=== PATIENT | female | born 1950 | race Caucasian/White ===

== ENCOUNTER 2016-04-13 10:45 | Outpatient (CLI) | payer MEDICARE, OTHER | END 2016-04-13 10:46 | disposition home or self-care (01) | DX: L03.211 Cellulitis of face (principal) ==

== ENCOUNTER 2016-07-20 13:11 | Outpatient (CLI) | payer MEDICARE, OTHER | END 2016-07-20 13:12 | disposition home or self-care (01) | DX: Z12.31 Encounter for screening mammogram for malignant neoplasm of breast (principal); Z80.3 Family history of malignant neoplasm of breast ==

== ENCOUNTER 2017-07-26 13:15 | Outpatient (CLI) | payer MEDICARE, OTHER ==
--- NOTE | 2017-07-27 20:03 | Mammography Report ---
DIGITAL SCREENING MAMMOGRAM: 07/26/2017 TECHNIQUE: Routine CC and MLO projections were obtained of the breasts. CLINICAL INDICATION: A 66-year-old with family history of breast cancer, for screening. COMPARISON: 07/2016, 07/2015, 06/2014, 06/2013, 06/2012, 05/2011, 03/2010 FINDINGS: Scattered fibroglandular tissue is present within the breasts. There are no dominant masses, suspicious microcalcifications, or secondary signs of malignancy. In comparison to the previous studies, there are no significant changes. ASSESSMENT: NO MAMMOGRAPHIC EVIDENCE OF MALIGNANCY. NO SIGNIFICANT INTERVAL CHANGES. RECOMMENDATION: Screening mammography is recommended annually. BIRADS category 1 - negative. STANDARD QUALIFYING STATEMENTS: 1. This examination was reviewed with the aid of Computed-Aided Detection (CAD). 2. A negative or benign imaging report should not delay biopsy if clinically suspicious findings are present. Consider surgical consultation if warranted. More than 5% of cancers are not identified by imaging. 3. Dense breasts may obscure an underlying neoplasm. TD: 07/27/2017 20:01
== END 2017-07-26 13:16 | disposition home or self-care (01) ==
LOC: DI 13:15
PROVIDERS: ATTEND Family Medicine
DX: Z12.31 Encounter for screening mammogram for malignant neoplasm of breast (principal); Z80.3 Family history of malignant neoplasm of breast
CPT/HCPCS: 77067

== ENCOUNTER 2017-08-09 09:59 | Outpatient (CLI) | payer MEDICARE, OTHER ==
[2017-08-09 12:54] LABS: BASOPHILS % (AUTO) 0.6 %; EOSINOPHILS # (AUTO) 0.1 10^3/uL (0.0-0.7); EOSINOPHILS % (AUTO) 0.9 %; HGB - HEMOGLOBIN 14.7 g/dL (12.0-16.0); LYMPHOCYTES # (AUTO) 1.5 10^3/uL (1.5-3.5); LYMPHOCYTES % (AUTO) 26.3 %; MEAN CORPUSCULAR HEMOGLOBIN 29.9 pg (27.0-31.0); MEAN CORPUSCULAR HGB CONC 33.6 g/dL (32.0-36.0); MEAN CORPUSCULAR VOLUME 88.8 fL (81.0-99.0); MEAN PLATELET VOLUME 9.2 fL (7.9-10.8); MONOCYTES # (AUTO) 0.4 10^3/uL (0.0-1.0); MONOCYTES % (AUTO) 6.2 %; NEUTROPHILS # (AUTO) 3.8 10^3/uL (1.5-6.6); PLT - PLATELET COUNT 177 10^3/uL (130-450); RED BLOOD COUNT 4.91 10^6/uL (4.20-5.40); RED CELL DISTRIBUTION WIDTH 13.2 % (12.0-15.0); WHITE BLOOD COUNT 5.7 x10^3/uL (4.8-10.8)
[2017-08-09 12:59] LABS: ALBUMIN 4.2 g/dL (3.2-5.5); ALBUMIN/GLOBULIN RATIO 1.1 (1.0-2.2); ALKALINE PHOSPHATASE 83 IU/L (42-121); ALT ALANINE AMINOTRANSFERASE 14 IU/L (10-60); AST ASPARTATE AMINOTRANSFERASE 23 IU/L (10-42); BILIRUBIN,TOTAL 1.4 mg/dL (0.2-1.0); BUN - BLOOD UREA NITROGEN 19 mg/dL (6-20); CALCIUM 9.2 mg/dL (8.5-10.3); CARBON DIOXIDE - CO2 27 mmol/L (21-32); CHLORIDE 101 mmol/L (101-111); CHOL/HDL RATIO 3.9 (<4.4); CHOLESTEROL 267 mg/dL; CREATININE 0.7 mg/dL (0.4-1.0); GFR - MDRD 83 (>89); GLUCOSE 87 mg/dL (70-100); HDL CHOLESTEROL 69 mg/dL; LDL CHOLESTEROL,CALCULATED 178 mg/dL; LDL/HDL RATIO 2.6 (<4.4); SODIUM 137 mmol/L (135-145); TOTAL PROTEIN 7.9 g/dL (6.7-8.2); VLDL CHOLESTEROL 20 mg/dL
== END 2017-08-09 10:00 | disposition home or self-care (01) ==
LOC: LAB.WCP 09:59
PROVIDERS: ATTEND Family Medicine
DX: E78.5 Hyperlipidemia, unspecified (principal); R53.83 Other fatigue; E03.9 Hypothyroidism, unspecified
CPT/HCPCS: 36415; 80053; 80061; 83721; 84443; 85025

== ENCOUNTER 2017-08-13 12:53 | Outpatient (CLI) | payer MEDICARE, OTHER ==
--- NOTE | 2017-08-16 17:24 | DEXA Report ---
DEXA SCAN: 08/13/2017 INDICATION: Bone mineral density screening. TECHNIQUE: Dual energy x-ray absorptiometry (DXA) was performed on a Edictive system. Regions measured are the AP spine, femoral neck, and, if needed, forearm. COMPARISON: No comparable comparison. In accordance with the International Society for Clinical Densitometry (ISCD) guidelines, data from previous exams may be reanalyzed using current recommendations and techniques. This is done to allow a more accurate basis for comparison with the current study. FINDINGS The data for the lumbar spine is as follows: REGION BMD (g/cm/cm) T-SCORE Z-SCORE L1 0.834 -2.5 -1.2 L2 0.993 -1.7 -0.5 L3 1.120 -0.7 0.6 L4 1.360 1.3 2.6 TOTAL 1.087 -0.8 0.5 NOTE: All evaluable vertebrae are used for classification. The data for the hip is as follows: REGION BMD (g/cm/cm) T-SCORE Z-SCORE Neck 0.648 -2.8 -1.5 TOTAL 0.765 -1.9 -0.9 NOTE: The femoral neck or total proximal femur, whichever is lowest, is used for classification. Lumbar spine bone mineral density L1-L4 1.087 grams/cm2. T-score minus 0.8. Z- score 0.5. WHO classification normal. Femoral neck bone mineral density 0.648 grams/cm2. T score -2.8. Z-score - 1.5. WHO classification osteoporosis. IMPRESSION WHO CLASSIFICATION BASED ON THE INTERNATIONAL REFERENCE STANDARD IS OSTEOPOROSIS. FRACTURE RISK IS HIGH. RECOMMENDATION: Patients with diagnosis of osteoporosis or osteopenia should have regular bone mineral density assessment. For those eligible for Medicare, routine testing is allowed once every 2 years. Testing frequency can be increased for patients who have rapidly progressing disease or for those who are receiving medical therapy to restore bone mass. COMMENT World Health Organization (WHO) definitions for osteoporosis and osteopenia: NORMAL BMD: T-score at 1.0 or higher, fracture risk is low. OSTEOPENIA BMD: T-score between 1.0 and -2.5, fracture risk is increased. OSTEOPOROSIS BMD: T-score at 2.5 or lower, fracture risk high. National Osteoporosis Foundation recommends: 1. Obtain adequate dietary calcium (at least 1200 mg per day) and vitamin D (400 -800 international units per day). 2. Participate, as appropriate, in regular weightbearing and muscle- strengthening exercise. 3. Avoid tobacco use and reduce alcohol and caffeine intake. 4. For more detailed information see the website at www.NOF.org. TD: 08/16/2017 08:31 GINA
== END 2017-08-13 12:54 | disposition home or self-care (01) ==
LOC: DI 12:53
PROVIDERS: ATTEND Family Medicine
DX: Z78.0 Asymptomatic menopausal state (principal); M81.0 Age-related osteoporosis without current pathological fracture
CPT/HCPCS: 77080

== ENCOUNTER 2017-10-12 09:48 | Day surgery (SDC) | payer MEDICARE, OTHER ==
[2017-10-12] MEDS ORDERED: LACTATED RINGERS 1,000 ML IV ONE ×2 (10:15→13:38)
[2017-10-12] MEDS ORDERED: fentaNYL 250 MCG/5 ML VIAL IVP ONE (10:57)
[2017-10-12] MEDS ORDERED: MIDAZOLAM 2 MG/2 ML VIAL IVP ONE (10:57)
[2017-10-12] MEDS ORDERED: ONDANSETRON 4 MG/2 ML VIAL ONE (12:02)
[2017-10-12] MEDS ORDERED: METOCLOPRAMIDE 10 MG/2 ML VIAL ONE (12:03)
[2017-10-12] MEDS ORDERED: SCOPOLAMINE PATCH TOP ONE (13:42)
[2017-10-12 15:12] VITALS: BP 121/80
== END 2017-10-12 09:49 | disposition home or self-care (01) ==
LOC: SDS 09:48
PROVIDERS: ATTEND Surgery
PROC: 0DJD8ZZ Inspection of Lower Intestinal Tract, Via Natural or Artificial Opening Endoscopic (ICD-10-PCS; principal; 2017-10-12 11:00)
DX: Z12.11 Encounter for screening for malignant neoplasm of colon (principal); K57.30 Diverticulosis of large intestine without perforation or abscess without bleeding; K64.8 Other hemorrhoids; Z87.891 Personal history of nicotine dependence
CPT/HCPCS: G0121; J3010; J3490; J7120

== ENCOUNTER 2018-08-10 10:23 | Outpatient (CLI) | payer MEDICARE, OTHER ==
--- NOTE | 2018-08-11 09:12 | Mammography Report ---
Reason: SCREENING MAMMO Procedure Date: 08/10/2018 Accession Number: [id number] / [id number] Procedure: [facility] - Screening Mammo w/Erick CPT Code: FULL RESULT: EXAM: Screening Mammo w/Erick DATE: 08/10/2018 10:54 AM CLINICAL HISTORY: Screening encounter. History of early menses. Family history of breast cancer in the mother at the age of 69. TECHNIQUE: (B) - Bilateral CC and MLO views were obtained. COMPARISON: 07/26/2017 through 06/11/2014. PARENCHYMAL PATTERN: (A) - The breast(s) demonstrate(s) scattered fibroglandular densities. FINDINGS: There are no suspicious masses, calcifications, or areas of distortion. IMPRESSION: Negative examination. BI-RADS category 1. RECOMMENDATION: (ANNUAL) - Recommend routine annual screening mammography. BI-RADS CATEGORY: (1) - Negative. STANDARD QUALIFYING STATEMENTS: 1. This examination was not reviewed with the aid of Computer-Aided Detection (CAD). 2. A negative or benign imaging report should not preclude biopsy if clinically suspicious findings are present. 3. Dense breasts may obscure an underlying neoplasm. 4. This examination was reviewed with the aid of 3D breast imaging (tomosynthesis).
== END 2018-08-10 10:24 | disposition home or self-care (01) ==
LOC: DI 10:23
DX: Z12.31 Encounter for screening mammogram for malignant neoplasm of breast (principal); Z80.3 Family history of malignant neoplasm of breast
CPT/HCPCS: 77063; 77067

== ENCOUNTER 2019-01-15 16:55 | Emergency (ER) | payer MEDICARE, OTHER ==
[2019-01-15 17:10] VITALS: BP 151/80
--- NOTE | 2019-01-15 17:11 | ED Physician Documentation ---
PD HPI NECK PAIN - Stated complaint Stated Complaint: NECK/SHOULDER PX - Chief complaint Chief Complaint: Trauma Hd/Nk - History obtained from History obtained from: Patient - History of Present Illness Timing - onset: Other (Over the last couple of days she has had pain over the left neck radiating down into the trapezius and towards the clavicle. She got worried about it today and checked her blood pressure and it was about 156/90 prompting emergency department visit. 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, Tubal ligation HEENT: Cataracts - Present Medications Home Medications: Ambulatory Orders Medication Instructions Recorded Confirmed Levothyroxine [Synthroid] 25 mcg PO QDAC 10/11/17 10/12/17 Cyclobenzaprine [Flexeril] 10 mg PO TID PRN #20 tablet 01/15/19 - Allergies Allergies/Adverse Reactions: Allergies Allergy/AdvReac Type Severity Reaction Status Date / Time NSAIDS (Non-Steroidal Allergy Severe Bleeding Verified 01/15/19 17:02 Anti-Inflamma iodine AdvReac Mild Feeling Verified 01/15/19 17:02 flushed PD ED PE NORMAL - Vitals Vital signs reviewed: Yes - General General: Alert and oriented X 3, No acute distress - HEENT HEENT: PERRL, EOMI - Neck Neck: Other (She is tender over the left sternocleidomastoid and trapezius. She has pain with rotation of the neck but not flexion or extension.) - Cardiac Cardiac: RRR, No murmur - Respiratory Respiratory: Clear bilaterally - Abdomen Abdomen: Non tender - Extremities Extremities: No edema, No calf tenderness / cord - Neuro Neuro: Alert and oriented X 3, Normal speech Results - Vitals Vitals: Vital Signs - 24 hr 01/15/19 16:59 Temperature 36.9 C Heart Rate 82 Respiratory 16 Rate Blood Pressure 151/80 H O2 Saturation 100 Oxygen O2 Source Room air - EKG (time done) 1712 Rate: Rate (enter#) (81) Rhythm: NSR, LAE [place]: Normal Intervals: Normal NE QRS: Normal Ischemia: Normal ST segments Computer interpretation: Agree with computer PD MEDICAL DECISION MAKING - ED course ED course: She is worried about her blood pressure, its really actually not that elevated from emergency department standpoint. Clinically she has sternocleidomastoid spasm. An EKG was checked out of an abundance of caution. Departure - Departure Disposition: 01 Home, Self Care Clinical Impression: Elevated blood pressure reading in office without diagnosis of hypertension Strain of sternocleidomastoid muscle Qualifiers: Encounter type: initial encounter Qualified Code(s): S16.1XXA - Strain of muscle, fascia and tendon at neck level, initial encounter Condition: Good Record reviewed to determine appropriate education?: Yes Instructions: ED Sprain Strain Neck Prescriptions: Cyclobenzaprine [Flexeril] 10 mg PO TID PRN #20 tablet PRN Reason: Spasms Comments: Your blood pressure today is elevated, but not enough that it would be immediately dangerous. Check it again when you are feeling well. Return for new or worsening symptoms. Follow-up with your doctor this week.
== END 2019-01-15 17:27 | disposition home or self-care (01) ==
LOC: ED 16:55
DX: R03.0 Elevated blood-pressure reading, without diagnosis of hypertension (principal); S16.1XXA Strain of muscle, fascia and tendon at neck level, initial encounter; X50.9XXA Other and unspecified overexertion or strenuous movements or postures, initial encounter; Y93.H9 Activity, other involving exterior property and land maintenance, building and construction; Y92.007 Garden or yard of unspecified non-institutional (private) residence as the place of occurrence of the external cause
CPT/HCPCS: 93005; 99282; 99283

== ENCOUNTER 2019-04-11 07:56 | Outpatient (CLI) | payer MEDICARE, OTHER ==
[2019-04-11 08:32] LABS: BASOPHILS % (AUTO) 0.6 %; EOSINOPHILS # (AUTO) 0.1 10^3/uL (0.0-0.7); EOSINOPHILS % (AUTO) 1.7 %; HGB - HEMOGLOBIN 14.5 g/dL (12.0-16.0); LYMPHOCYTES # (AUTO) 1.7 10^3/uL (1.5-3.5); LYMPHOCYTES % (AUTO) 32.7 %; MEAN CORPUSCULAR HEMOGLOBIN 29.8 pg (27.0-31.0); MEAN CORPUSCULAR HGB CONC 32.4 g/dL (32.0-36.0); MEAN CORPUSCULAR VOLUME 91.8 fL (81.0-99.0); MEAN PLATELET VOLUME 10.4 fL (7.9-10.8); MONOCYTES # (AUTO) 0.4 10^3/uL (0.0-1.0); MONOCYTES % (AUTO) 7.3 %; NEUTROPHILS # (AUTO) 3.1 10^3/uL (1.5-6.6); NEUTROPHILS % (AUTO) 57.3 %; PLT - PLATELET COUNT 172 10^3/uL (130-450); RED BLOOD COUNT 4.87 10^6/uL (4.20-5.40); WHITE BLOOD COUNT 5.3 x10^3/uL (4.8-10.8)
[2019-04-11 08:39] LABS: ALBUMIN 4.1 g/dL (3.2-5.5); ALBUMIN/GLOBULIN RATIO 1.2 (1.0-2.2); ALKALINE PHOSPHATASE 75 IU/L (42-121); ALT ALANINE AMINOTRANSFERASE 11 IU/L (10-60); AST ASPARTATE AMINOTRANSFERASE 19 IU/L (10-42); BUN - BLOOD UREA NITROGEN 12 mg/dL (6-20); CALCIUM 9.1 mg/dL (8.5-10.3); CARBON DIOXIDE - CO2 29 mmol/L (21-32); CHLORIDE 104 mmol/L (101-111); CHOL/HDL RATIO 3.2 (<4.4); CHOLESTEROL 188 mg/dL; CREATININE 0.7 mg/dL (0.4-1.0); GFR - MDRD 83 (>89); GLUCOSE 95 mg/dL (70-100); HDL CHOLESTEROL 58 mg/dL; LDL CHOLESTEROL,CALCULATED 111 mg/dL; LDL/HDL RATIO 1.9 (<4.4); SODIUM 140 mmol/L (135-145); TOTAL PROTEIN 7.5 g/dL (6.7-8.2); VLDL CHOLESTEROL 19 mg/dL
== END 2019-04-11 07:57 | disposition home or self-care (01) ==
LOC: LAB 07:56
PROVIDERS: ATTEND Nurse Practitioner Family
DX: E78.5 Hyperlipidemia, unspecified (principal); E03.9 Hypothyroidism, unspecified
CPT/HCPCS: 36415; 80053; 80061; 83721; 84443; 85025

== ENCOUNTER 2019-09-06 11:09 | Outpatient (CLI) | payer MEDICARE, OTHER ==
--- NOTE | 2019-09-08 11:25 | Mammography Report ---
BILATERAL DIGITAL SCREENING MAMMOGRAM 3D/2D: 09/06/2019 CLINICAL: Routine screening. Family history of breast cancer. Comparison is made to exams dated: 08/10/2018 mammogram, 07/26/2017 mammogram, 07/20/2016 mammogram, and 07/08/2015 mammogram - [facility]. There are scattered fibroglandular elements in b oth breasts. No significant masses, calcifications, or other findings are seen in either breast. There has been no significant interval change. IMPRESSION: NEGATIVE There is no mammographic evidence of malignancy. A 1 year screening mammogram is recommended. This exam was interpreted at Station ID: [id number]. NOTE: For mammograms, a report in lay terms will be sent to the patient. Approximately 15% of breast malignancies will not be visualized mammographically. In the management of a palpable breast mass, a negative mammogram must not discourage biopsy of a clinically suspicious lesion. Electronically Signed By: Adrianne [email or web address]:09/06/2019 14:45:28 ACR BI-RADS Category 1: Negative [id number] PARENCHYMAL PATTERN: (A) - The breast(s) demonstrate(s) scattered fibroglandular densities. BI-RADS CATEGORY: (1) - 1 RECOMMENDATION: (ANNUAL) - Recommend routine annual screening mammography. [id number] 1 year screening LATERALITY: (B)
== END 2019-09-06 11:10 | disposition home or self-care (01) ==
LOC: DI 11:09
DX: Z12.31 Encounter for screening mammogram for malignant neoplasm of breast (principal); Z80.3 Family history of malignant neoplasm of breast
CPT/HCPCS: 77063; 77067

== ENCOUNTER 2019-10-01 09:56 | Emergency (ER) | payer MEDICARE, OTHER ==
[2019-10-01] MEDS ORDERED: DEXAMETHASONE 10 MG/ML VIAL PO STA (10:45)
[2019-10-01] MEDS ORDERED: CHERRY SYRUP 10 ML UDC PO ONE (10:45)
[2019-10-01] MEDS ORDERED: KETOROLAC 60 MG/2 ML VIAL IM STA (10:45)
--- NOTE | 2019-10-01 10:49 | ED Physician Documentation ---
PD HPI BACK PAIN - Stated complaint Stated Complaint: BACK PAIN - Chief complaint Chief Complaint: Back Pain - History obtained from History obtained from: Patient - History of Present Illness Timing - onset: How many days ago (3) Timing - duration: Days (3) Timing - details: Abrupt onset, Still present Location: Lower, Right Quality: Pain, Spasm, Sharp, Similar to prior episodes Associated symptoms: Numbness. No: Fever, Weakness, Incontinent of urine, Unable to urinate, Hematuria, Incontinent of stool Improves with: Rest, Position, Meds Worsened by: Movement Similar symptoms before: Diagnosis (sciatica) Recently seen: Clinic Review of Systems Constitutional: denies: Fever, Chills, Myalgias, Fatigue Eyes: denies: Decreased vision Ears: denies: Ear pain Nose: denies: Rhinorrhea / runny nose, Congestion Throat: denies: Sore throat Cardiac: denies: Chest pain / pressure, Palpitations Respiratory: reports: Cough (allergic cough). denies: Dyspnea GI: denies: Abdominal Pain, Nausea, Vomiting : denies: Dysuria, Frequency Skin: denies: Rash, Lesions Musculoskeletal: reports: Back pain, Extremity pain. 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 HEENT: Cataracts - Present Medications Home Medications: Ambulatory Orders Medication Instructions Recorded Confirmed Levothyroxine [Synthroid] 25 mcg PO QDAC 10/11/17 10/12/17 Cyclobenzaprine [Flexeril] 10 mg PO TID PRN #20 tablet 01/15/19 Cyclobenzaprine [Flexeril] 10 mg PO TID PRN #20 tablet 10/01/19 Hydrocodone/Acetaminophen 1 - 2 each PO Q6H PRN #14 tablet 10/01/19 [Hydrocodon-Acetaminophen 5-325] - Allergies Allergies/Adverse Reactions: Allergies Allergy/AdvReac Type Severity Reaction Status Date / Time NSAIDS (Non-Steroidal Allergy Severe Bleeding Verified 01/15/19 17:02 Anti-Inflamma iodine AdvReac Mild Feeling Verified 01/15/19 17:02 flushed - Social History Does the pt smoke?: No Smoking Status: Never smoker PD ED PE NORMAL - Vitals Vital signs reviewed: Yes (tachy and hypertensive ) - General General: Alert and oriented X 3, Well developed/nourished, Other (appears to be in pain with manager intensive care tone and flat affect) - HEENT HEENT: Atraumatic, PERRL, EOMI - Neck Neck: Supple, no meningeal sign - Respiratory Respiratory: No respiratory distress - Back Back: No CVA TTP, No spinal TTP, Other (tenderness extends from the lower right paraspinous muscles into the sciatic notch and over the trochanter) - Derm Derm: Normal color, Warm and dry, No rash - Extremities Extremities: No deformity, No edema, No calf tenderness / cord - Neuro Neuro: Alert and oriented X 3, bleach supervisor 2-12 intact, No motor deficit, No sensory deficit, Normal speech Eye Opening: Spontaneous Motor: Obeys Commands Verbal: Oriented GCS Score: 15 - Psych Psych: Normal mood, Normal affect Results - Vitals Vitals: Vital Signs - 24 hr 10/01/19 10/01/19 10:01 11:07 Temperature 36.8 C 36.4 C L Heart Rate 102 H 96 Respiratory 16 16 Rate Blood Pressure 129/93 H 138/74 H O2 Saturation 99 99 Oxygen O2 Source Room air PD MEDICAL DECISION MAKING - ED course Complexity details: reviewed old records, re-evaluated patient, considered differential, d/w patient ED course: 68-year-old female history of sciatica has developed acute sciatica on the right side. This is not her usual side. She has significant symptoms all way down the leg. She is administered dexamethasone 10 mg orally and Toradol 60 mg IM[address] We will place her on some Flexeril and hydrocodone. Departure - Departure Disposition: 01 Home, Self Care Clinical Impression: Sciatica Qualifiers: Laterality: right Qualified Code(s): M54.31 - Sciatica, right side Condition: Stable Instructions: ED Sciatica Follow-Up: Flores Dumont DO [Primary Care Provider] - Prescriptions: Cyclobenzaprine [Flexeril] 10 mg PO TID PRN #20 tablet PRN Reason: Spasms Hydrocodone/Acetaminophen [Hydrocodon-Acetaminophen 5-325] 1 - 2 each PO Q6H PRN #14 tablet PRN Reason: pain Discharge Date/Time: 10/01/19 11:08
[2019-10-01 11:08] VITALS: BP 138/74
== END 2019-10-01 11:08 | disposition home or self-care (01) ==
LOC: ED 09:56
DX: M54.41 Lumbago with sciatica, right side (principal)
CPT/HCPCS: 96372; 99283; 99284; A9270

== ENCOUNTER 2019-10-07 08:33 | Emergency (ER) | payer MEDICARE, OTHER ==
--- NOTE | 2019-10-07 08:55 | ED Physician Documentation ---
PD HPI BACK PAIN - Stated complaint Stated Complaint: RT LEG PX - Chief complaint Chief Complaint: Back Pain - History obtained from History obtained from: Patient - History of Present Illness Timing - onset: How many days ago (10) Timing - duration: Days (10) Timing - details: Gradual onset, Still present (worsening each day) Location: Lower, Right (has pain right low back radiating down right posterior thigh to anterolateral lower leg then top of foot. No noted injury. Has tenderness along the leg in those areas.) Quality: Pain, Aching Associated symptoms: No: Fever, Weakness, Numbness, Incontinent of urine Improves with: No: Rest, Meds (got Rx for hydrocodone in ER couple days ago and says not improved at all with it. Did get some improvement with Toradol IM and oral decadron for 1-2 days, but then back again. However she says she got swel ling and redness of the face after that visit, lasted 2 days.) Worsened by: Movement, Palpation Contributing factors: No: Trauma, Anticoagulated Similar symptoms before: Has not had sx before (has had left low back with sciatic radiation in the past but did not have palpable tenderness with it and had not been as severe as the current pain.) Recently seen: Emergency Dept Review of Systems Constitutional: denies: Fever, Chills, Myalgias Nose: denies: Rhinorrhea / runny nose, Congestion Throat: denies: Sore throat Respiratory: denies: Cough GI: denies: Abdominal Pain, Nausea, Vomiting, Diarrhea : denies: Dysuria, Frequency Skin: reports: Rash (noted small cluster of bumps on right gluteal several days ago and is locally tender. No drainage. 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 HEENT: Cataracts - Present Medications Home Medications: Ambulatory Orders Medication Instructions Recorded Confirmed Levothyroxine [Synthroid] 25 mcg PO QDAC 10/11/17 10/12/17 Cyclobenzaprine [Flexeril] 10 mg PO TID PRN #20 tablet 01/15/19 Cyclobenzaprine [Flexeril] 10 mg PO TID PRN #20 tablet 10/01/19 Hydrocodone/Acetaminophen 1 - 2 each PO Q6H PRN #14 tablet 10/01/19 [Hydrocodon-Acetaminophen 5-325] Amitriptyline HCl 25 mg PO QPM #20 tablet 10/07/19 Oxycodone HCl/Acetaminophen 1 each PO Q6H PRN #12 tablet 10/07/19 [Percocet 5-325 mg Tablet] Valacyclovir HCl [Valacyclovir] 500 mg PO TID #15 tablet 10/07/19 dexAMETHasone [Decadron] 4 mg PO DAILY #5 tablet 10/07/19 - Allergies Allergies/Adverse Reactions: Allergies Allergy/AdvReac Type Severity Reaction Status Date / Time NSAIDS (Non-Steroidal Allergy Severe Bleeding Verified 10/07/19 08:46 Anti-Inflamma iodine AdvReac Mild Feeling Verified 10/07/19 08:46 flushed - Social History Does the pt smoke?: No Smoking Status: Never smoker PD ED PE NORMAL - Vitals Vital signs reviewed: Yes - General General: Alert and oriented X 3, Well developed/nourished - Neck Neck: Supple, no meningeal sign, No adenopathy - Cardiac Cardiac: RRR, No murmur - Respiratory Respiratory: Clear bilaterally - Abdomen Abdomen: Soft, Non tender - Back Back: No CVA TTP, No spinal TTP (but is tender right paralumbar muscles and SI area, and also some along back of thigh and lateral lower leg. ) - Derm Derm: Warm and dry, Other (rounded area of several bumps that have small blisterish early appearance, but no vesicles per se. About 6 cm area of rash. No induration nor abscess felt. ) Results - Vitals Vitals: Vital Signs - 24 hr 10/07/19 10/07/19 08:43 10:00 Temperature 36.8 C Heart Rate 94 80 Respiratory 18 18 Rate Blood Pressure 123/76 126/83 H O2 Saturation 99 98 Oxygen O2 Source Room air PD MEDICAL DECISION MAKING - ED course Complexity details: considered differential (sciatic distribution pain and has rounded patch of small bumps/blisterish rash on gluteal area. Consider likely shingles. ), d/w patient Departure - Departure Disposition: 01 Home, Self Care Clinical Impression: Right sciatic nerve pain, Skin rash Condition: Stable Record reviewed to determine appropriate education?: Yes Instructions: ED Sciatica, ED Shingles Follow-Up: Flores Dumont DO [Primary Care Provider] - Prescriptions: Amitriptyline HCl 25 mg PO QPM #20 tablet dexAMETHasone [Decadron] 4 mg PO DAILY #5 tablet Oxycodone HCl/Acetaminophen [Percocet 5-325 mg Tablet] 1 each PO Q6H PRN #12 tablet PRN Reason: pain Valacyclovir HCl [Valacyclovir] 500 mg PO TID #15 tablet Comments: Use the Decadron steroid daily for 5 more days. Also valacyclovir as a believe your pain may be shingles. Add amitriptyline nightly for the next 2 to 3 weeks as this helps with nerve pain regardless of shingles or sciatic irritation. Add Tylenol 4 times a day or oxycodone if needed for worse pain. Follow-up with your primary care if not improving well over the next 2 to 3 days. Discharge Date/Time: 10/07/19 10:21
[2019-10-07] MEDS ORDERED: CHERRY SYRUP 10 ML UDC PO ONE (09:37)
[2019-10-07] MEDS ORDERED: oxyCODONE 5 MG TABLET PO STA (09:37)
[2019-10-07] MEDS ORDERED: DEXAMETHASONE 10 MG/ML VIAL PO STA (09:37)
[2019-10-07] MEDS ORDERED: valACYclovir 500 MG TABLET PO STA (09:37)
[2019-10-07] MEDS ORDERED: AMITRIPTYLINE 25 MG TABLET PO STA (09:37)
[2019-10-07 10:05] VITALS: BP 126/83
== END 2019-10-07 10:21 | disposition home or self-care (01) ==
LOC: ED 08:33
DX: M54.31 Sciatica, right side (principal); R51 Headache
CPT/HCPCS: 99284; A9270

== ENCOUNTER 2020-02-13 10:19 | Emergency (ER) | payer MEDICARE, OTHER ==
[2020-02-13 11:46] LABS: BASOPHILS % (AUTO) 0.8 %; EOSINOPHILS # (AUTO) 0.1 10^3/uL (0.0-0.7); EOSINOPHILS % (AUTO) 1.4 %; HGB - HEMOGLOBIN 14.8 g/dL (12.0-16.0); LYMPHOCYTES # (AUTO) 1.8 10^3/uL (1.5-3.5); LYMPHOCYTES % (AUTO) 34.2 %; MEAN CORPUSCULAR HEMOGLOBIN 29.3 pg (27.0-31.0); MEAN CORPUSCULAR HGB CONC 32.3 g/dL (32.0-36.0); MEAN CORPUSCULAR VOLUME 90.7 fL (81.0-99.0); MEAN PLATELET VOLUME 10.9 fL (7.9-10.8); MONOCYTES # (AUTO) 0.3 10^3/uL (0.0-1.0); MONOCYTES % (AUTO) 6.5 %; NEUTROPHILS # (AUTO) 2.9 10^3/uL (1.5-6.6); NEUTROPHILS % (AUTO) 56.7 %; PLT - PLATELET COUNT 208 10^3/uL (130-450); RED BLOOD COUNT 5.05 10^6/uL (4.20-5.40); RED CELL DISTRIBUTION WIDTH 12.1 % (12.0-15.0); WHITE BLOOD COUNT 5.1 x10^3/uL (4.8-10.8)
--- NOTE | 2020-02-13 11:48 | ED Physician Documentation ---
History of Present Illness - Stated complaint Stated Complaint: NAUSEA/WEAKNESS - Chief complaint Chief Complaint: General - History obtained from History obtained from: Patient - History of Present Illness Timing: How many days ago (4) - Additonal information Additional information: 69-year-old female presents to the emergency department with reports that for 4 days she has been having persistent nausea, chills feeling feverish and weak. She denies any vomiting diarrhea or dysuria. However she does report that she has some short this of breath when she takes a deep breath. She denies any chest pain but does state that her epigastrium hurts and it radiates up into her chest. She denies any recent travel or sick contacts. She does not have a history of cancer or deep vein thrombosis. No recent immobilization or surgeries. She denies unilateral leg swelling. PMH: hypothyroidism. Meds: Levothyroxine PSH: Social: no tobacco or EtOH Review of Systems Constitutional: reports: Myalgias. denies: Fever Eyes: denies: Loss of vision, Decreased vision Ears: reports: Reviewed and negative Nose: denies: Rhinorrhea / runny nose, Congestion Throat: reports: Reviewed and negative Cardiac: denies: Chest pain / pressure, Palpitations, Pedal edema, Calf pain Respiratory: reports: Dyspnea, Cough (chronic per pt; PND). denies: Hemoptysis, Wheezing GI: reports: Abdominal Pain, Nausea. denies: Vomiting, Constipation, Diarrhea, Hematemesis : reports: Reviewed and negative. denies: Dysuria, Frequency, Hesitancy Skin: reports: Reviewed and negative Musculoskeletal: reports: Reviewed and negative Neurologic: reports: Reviewed and negative Psychiatric: reports: Reviewed and negative Endocrine: reports: Reviewed and negative PD PAST MEDICAL HISTORY - Past Medical History Cardiovascular: High cholesterol Respiratory: None Endocrine/Autoimmune: HyPOthyroidism GI: None : None HEENT: Chronic vision loss, Chronic sinusitis, Other Psych: Claustrophobia Musculoskeletal: Osteoarthritis, Chronic back pain, Other Derm: None Other Past Medical History: pt reports hx of diverticulosis, c/section 42 years ago, bilateral tubal ligation. - Past Surgical History General: Colonoscopy /[employer]: section, Tubal ligation HEENT: Cataracts - Present Medications Home Medications: Ambulatory Orders Medication Instructions Recorded Confirmed Levothyroxine [Synthroid] 25 mcg PO QDAC 10/11/17 02/13/20 - Allergies Allergies/Adverse Reactions: Allergies Allergy/AdvReac Type Severity Reaction Status Date / Time NSAIDS (Non-Steroidal Allergy Severe Bleeding Verified 10/07/19 08:46 Anti-Inflamma iodine AdvReac Mild Feeling Verified 10/07/19 08:46 flushed - Social History Does the pt smoke?: No Smoking Status: Never smoker PD ED PE NORMAL - General General: Alert and oriented X 3, No acute distress - HEENT HEENT: Atraumatic, EOMI, Ears normal - Neck Neck: Supple, no meningeal sign, No bony TTP, No adenopathy - Cardiac Cardiac: RRR, No murmur, No gallop, No rub, Strong equal pulses, Other (No unilateral leg swelling, pedal edema or calf pain/tenderness) - Respiratory Respiratory: No respiratory distress - Abdomen Abdomen: Normal bowel sounds, Soft. No: Non tender (Epigastric tenderness without guarding or rebound. Negative Steen's negative McBurney's) - Back Back: No CVA TTP, No spinal TTP - Derm Derm: Normal color, Warm and dry, No rash - Extremities Extremities: No deformity Results - Vitals Vitals: Vital Signs - 24 hr 02/13/20 02/13/20 02/13/20 10:22 10:27 12:11 Temperature 37.7 C H Heart Rate 88 72 85 Respiratory 18 13 19 Rate Blood Pressure 192/91 H 154/97 H 154/96 H O2 Saturation 100 98 100 02/13/20 02/13/20 02/13/20 12:30 13:02 13:30 Temperature Heart Rate 72 75 75 Respiratory 14 21 14 Rate Blood Pressure 159/75 H 117/106 H 134/75 H O2 Saturation 100 100 02/13/20 02/13/20 14:00 14:30 Temperature Heart Rate 72 79 Respiratory 12 12 Rate Blood Pressure 136/74 H 146/81 H O2 Saturation 98 98 Oxygen O2 Source Room air - EKG (time done) 1255 Rate: Rate (enter#) (72) Rhythm: NSR Scott: Normal Intervals: Normal MI QRS: Normal Ischemia: Normal ST segments Compare to prior EKG: Old EKG unavailable Computer interpretation: Agree with computer - Labs Labs: Laboratory Tests 02/13/20 02/13/20 02/13/20 10:55 10:55 10:55 WBC 5.1 RBC 5.05 Hgb 14.8 Hct 45.8 MCV 90.7 MCH 29.3 MCHC 32.3 RDW 12.1 Plt Count 208 MPV 10.9 H Neut # (Auto) 2.9 Lymph # (Auto) 1.8 [place] # (Auto) 0.3 Eos # (Auto) 0.1 Baso # (Auto) 0.0 Absolute Nucleated RBC 0.00 Nucleated RBC % 0.0 D-Dimer Sodium 138 Potassium 3.9 Chloride 102 Carbon Dioxide 26 Anion Gap 10.0 BUN 13 Creatinine 0.7 Estimated GFR (MDRD) 83 L Glucose 90 Calcium 9.2 Total Bilirubin 1.5 H AST 25 ALT 12 Alkaline Phosphatase 79 Troponin I High Sens 3.2 B-Natriuretic Peptide Total Protein 7.8 Albumin 4.2 Globulin 3.6 Albumin/Globulin Ratio 1.2 Lipase 33 TSH Nasal Adenovirus (PCR) Nasal B. parapertussis DNA (PCR) Nasal Coronavir 229E PCR Nasal Coronavir HKU1 PCR Nasal Coronavir NL63 PCR Nasal Coronavir OC43 PCR Nasal Enterovir/Rhinovir PCR Nasal Influenza B PCR Nasal Influenza A PCR Nasal Parainfluen 1 PCR Nasal Parainfluen 2 PCR Nasal Parainfluen 3 PCR Nasal Parainfluen 4 PCR Nasal RSV (PCR) Nasal B.pertussis DNA PCR Nasal C.pneumoniae (PCR) Anders Human Metapneumo PCR Nasal M.pneumoniae (PCR) Nasal SARS-CoV-2 (PCR) 02/13/20 02/13/20 02/13/20 10:55 10:55 12:10 WBC RBC Hgb Hct MCV MCH MCHC RDW Plt Count MPV Neut # (Auto) Lymph # (Auto) [place] # (Auto) Eos # (Auto) Baso # (Auto) Absolute Nucleated RBC Nucleated RBC % D-Dimer Sodium Potassium Chloride Carbon Dioxide Anion Gap BUN Creatinine Estimated GFR (MDRD) Glucose Calcium Total Bilirubin AST ALT Alkaline Phosphatase Troponin I High Sens B-Natriuretic Peptide 40 Total Protein Albumin Globulin Albumin/Globulin Ratio Lipase TSH 2.94 Nasal Adenovirus (PCR) NOT DETECTED Nasal B. parapertussis DNA (PCR) NOT DETECTED Nasal Coronavir 229E PCR NOT DETECTED Nasal Coronavir HKU1 PCR NOT DETECTED Nasal Coronavir NL63 PCR NOT DETECTED Nasal Coronavir OC43 PCR NOT DETECTED Nasal Enterovir/Rhinovir PCR NOT DETECTED Nasal Influenza B PCR NOT DETECTED Nasal Influenza A PCR NOT DETECTED Nasal Parainfluen 1 PCR NOT DETECTED Nasal Parainfluen 2 PCR NOT DETECTED Nasal Parainfluen 3 PCR NOT DETECTED Nasal Parainfluen 4 PCR NOT DETECTED Nasal RSV (PCR) NOT DETECTED Nasal B.pertussis DNA PCR NOT DETECTED Nasal C.pneumoniae (PCR) NOT DETECTED Anders Human Metapneumo PCR NOT DETECTED Nasal M.pneumoniae (PCR) NOT DETECTED Nasal SARS-CoV-2 (PCR) NOT DETECTED 02/13/20 12:23 WBC RBC Hgb Hct MCV MCH MCHC RDW Plt Count MPV Neut # (Auto) Lymph # (Auto) [place] # (Auto) Eos # (Auto) Baso # (Auto) Absolute Nucleated RBC Nucleated RBC % D-Dimer 236.2 Sodium Potassium Chloride Carbon Dioxide Anion Gap BUN Creatinine Estimated GFR (MDRD) Glucose Calcium Total Bilirubin AST ALT Alkaline Phosphatase Troponin I High Sens B-Natriuretic Peptide Total Protein Albumin Globulin Albumin/Globulin Ratio Lipase TSH Nasal Adenovirus (PCR) Nasal B. parapertussis DNA (PCR) Nasal Coronavir 229E PCR Nasal Coronavir HKU1 PCR Nasal Coronavir NL63 PCR Nasal Coronavir OC43 PCR Nasal Enterovir/Rhinovir PCR Nasal Influenza B PCR Nasal Influenza A PCR Nasal Parainfluen 1 PCR Nasal Parainfluen 2 PCR Nasal Parainfluen 3 PCR Nasal Parainfluen 4 PCR Nasal RSV (PCR) Nasal B.pertussis DNA PCR Nasal C.pneumoniae (PCR) Anders Human Metapneumo PCR Nasal M.pneumoniae (PCR) Nasal SARS-CoV-2 (PCR) - Rads (name of study) CXR Radiology: Final report received (No acute cardiopulmonary pathology) ABD US Radiology: See rad report (No gallstones, no CBD dilation. No findings consistent with acute cholecystitis.) CT abd Radiology: Final report received (Nonspecific matted appearance of small bowel loops which are tightly aggregated in the left abdomen. This is potentially a transient and clinically insignificant finding. However an internal hernia without obstruction could have a similar appearance. Inflammatory process resulting in adhesion of ) PD MEDICAL DECISION MAKING - ED course Complexity details: reviewed results, re-evaluated patient, considered differential, d/w patient ED course: This is a very well-appearing 69-year-old female that presents to the emergency department with about 3 to 4 days of nausea epigastric and left-sided abdominal pain. She reported that she felt like she could not fully catch her breath. EKG is nonischemic. High-sensitivity troponin is negative. Though by Carlitos criteria she is extremely low risk for PE, a D-dimer was completed. That was also normal. A chest x-ray showed no acute focal abnormalities and there was no hypoxia. Her labs did not reveal any leukocytosis or signs of an action. She did have a mild bilirubin elevation. Given the epigastric pain we did proceed with an ult rasound of the abdomen that was negative for any findings of biliary obstruction or cholecystitis. However after further evaluation of the patient she continued to have mostly upper abdominal and left-sided abdominal pain. We It did show a nonspecific matted appearance of the small bowel loops which were aggregated in the left abdomen. I discussed these findings at length with the patient. There does not appear to be an acute surgical emergency. I do suspect that the majority of her pain is coming from likely gastritis that she reported to me that she had stopped taking her Prilosec a few months ago. At this time we will discharge her home is to resume taking Prilosec. I will ask her to have close follow-up with her primary care provider. Emergent return precautions discussed for fevers, suddenly severe or different abdominal pain or uncontrolled vomitingdid give her a GI cocktail which did alleviate much of the upper abdominal pain but the left-sided pain persisted. Therefore we did complete a CT of the abdomen. Departure - Departure Disposition: 01 Home, Self Care Clinical Impression: Abdominal pain Qualifiers: Abdominal location: upper abdomen, unspecified Qualified Code(s): R10.10 - Upper abdominal pain, unspecified Condition: Stable Record reviewed to determine appropriate education?: Yes Instructions: ED Abdominal Pain Unkn Cause Comments: I hope that you are feeling better soon. The CT of your abdomen showed nothing acutely surgical today. As we discussed I suspect that the majority of your pain is gastritis as you did stop taking the Prilosec a few months ago. Please begin taking that again. Your labs were essentially unremarkable with the exception of the mild bilirubin elevation that we discussed. However the ultrasound of your abdomen did not show anything worrisome. I would like you to go home and drink a lot of water and you may take ibuprofen or Tylenol [id number] for pain. Please discuss this ED visit with your primary care provider. If at any point you have worsening pain, fevers uncontrolled vomiting or bloody bowel movements please return immediately to the ER
[2020-02-13] MEDS ORDERED: ONDANSETRON 4 MG/2 ML VIAL IVP STA (11:51)
[2020-02-13 12:01] LABS: ALBUMIN 4.2 g/dL (3.2-5.5); ALBUMIN/GLOBULIN RATIO 1.2 (1.0-2.2); BILIRUBIN,TOTAL 1.5 mg/dL (0.2-1.0); CALCIUM 9.2 mg/dL (8.5-10.3); CREATININE 0.7 mg/dL (0.4-1.0); TOTAL PROTEIN 7.8 g/dL (6.7-8.2)
--- NOTE | 2020-02-13 12:02 | XRAY Report ---
PROCEDURE: Chest 1 View X-Ray INDICATIONS: Chest Pain TECHNIQUE: One view of the chest was acquired. COMPARISON: None. FINDINGS: Surgical changes and devices: None. Lungs and pleura: No pleural effusions or pneumothorax. Lungs are clear. Mediastinum: Mediastinal contours appear normal. Heart size is normal. Bones and chest wall: No suspicious bony lesions. Overlying soft tissues appear unremarkable. IMPRESSION: No acute cardiopulmonary pathology. Reviewed by: Dwight Varela MD on 02/13/2020 11:01 AM [facility] Approved by: Dwight Varela MD on 02/13/2020 11:01 AM [facility] Station ID: [id number]
--- NOTE | 2020-02-13 13:01 | Ultrasound Report ---
PROCEDURE: Abdomen Limited INDICATIONS: epigastric pain; mildly elevated bili TECHNIQUE: Real-time focused scanning was performed of the abdomen, with image documentation. COMPARISON: None. FINDINGS: Normal hepatic parenchymal echogenicity, echotexture, and contour. No focal hepatic mass. No intrahepatic or extra hepatic biliary ductal dilatation. The common hepatic duct measures 2 mm. Th e common bile duct measures 5 mm at the eleno hepatis. Normally distended gallbladder without wall thickening, gallstone, or sludge. No pericholecystic flui d. Visualized portion of the pancreas is within normal limits, with obscuration of the body and tail. The aorta is mostly obscured by bowel gas. IVC is unremarkable. Right kidney is normal appearance. IMPRESSION: Unremarkable right upper quadrant ultrasound with no findings of cholecystitis or other acute abnorma lity. Reviewed by: Abe Kaye MD on 02/13/2020 1:00 PM [facility] Approved by: Abe Kaye MD on 02/13/2020 1:00 PM [facility] Station ID: [id number]
[2020-02-13 13:16] LABS: C. PNEUMONIAE- RESP PCR PANEL NOT DETECTED
[2020-02-13] MEDS ORDERED: LIDOCAINE VISCOUS 2% 15 ML UDC MM STA (13:27)
[2020-02-13] MEDS ORDERED: MAGNESIUM HYDROXIDE 2,400 MG/30 ML UDC PO STA (13:28)
[2020-02-13 14:39] VITALS: BP 146/81
[2020-02-13] MEDS ORDERED: IOVERSOL 320 100 ML VIAL IVP ONE ×2 (14:40→15:08)
--- NOTE | 2020-02-13 15:35 | CT Report ---
PROCEDURE: Abdomen/Pelvis W INDICATIONS: Left-sided abdominal pain, question of diverticulitis CONTRAST: IV CONTRAST: Optiray 320 ml: 100 PO CONTRAST: *NO PO CONTRAST TECHNIQUE: After the administration of intravenous contrast, 5 mm thick sections acquired from the diaphragms to the symphysis. 5 mm thick coronal and sagittal reformats were acquired. For radiation dose reducti on, the following was used: automated exposure control, adjustment of mA and/or kV according to amie ent size. COMPARISON: None. FINDINGS: Image quality: Excellent. ABDOMEN: Lung bases: Lung bases are clear. Heart size is normal. Solid organs: Liver and spleen are normal in size and enhancement. Gallbladder is normal. Biliary system is non dilated. Pancreas enhances normally. No adrenal nodules. Kidneys demonstrate normal size and enhancement, without hydronephrosis. Peritoneum and bowel: Matted appearance of small bowel loops which are aggregated in the left abdome n. There is no bowel wall thickening or associated inflammatory changes. The regional mesentery is un remarkable. The remainder of the bowel is normal with no evidence of wall thickening or abnormally di lated loop. No fluid level or other features of bowel obstruction. No pericolonic or mesenteric infla mmatory changes. No free fluid, free air, or pneumatosis. Nodes and vessels: No retroperitoneal or mesenteric adenopathy by size criteria. Aorta and inferior vena cava are normal in size. Miscellaneous: No ventral hernias. PELVIS: Genitourinary: Bladder wall thickness is normal. Miscellaneous: No inguinal hernias or adenopathy. Bones: No suspicious bony lesions. No vertebral body compression fractures. IMPRESSION: Nonspecific matted appearance of small bowel loops which are tightly aggregated in the left abdomen. This is potentially a transient and clinically insignificant finding. However, an internal hernia wit hout obstruction could have a similar appearance. An inflammatory process resulting in adhesion of per wel loops could also yield a similar appearance. Reviewed by: Abe Kaye MD on 02/13/2020 3:34 PM PST Approved by: Abe Kaye MD on 02/13/2020 3:34 PM PST Station ID: [id number]
== END 2020-02-13 16:16 | disposition home or self-care (01) ==
LOC: ED 10:19
DX: R10.10 Upper abdominal pain, unspecified (principal); R10.12 Left upper quadrant pain
CPT/HCPCS: 36415; 71045; 74177; 76705; 80053; 83690; 83880; 84443; 84484; 85025; 85379; 87631; 93005; 96374; 99284; A9270; Q9967; 0202U; 87275; 87276

== ENCOUNTER 2021-08-27 07:21 | Outpatient (CLI) | payer MEDICARE, OTHER ==
[2021-08-27 07:47] LABS: BASOPHILS % (AUTO) 0.7 %; EOSINOPHILS # (AUTO) 0.1 10^3/uL (0.0-0.7); EOSINOPHILS % (AUTO) 2.4 %; HCT - HEMATOCRIT 44.4 % (37.0-47.0); HGB - HEMOGLOBIN 14.5 g/dL (12.0-16.0); LYMPHOCYTES # (AUTO) 1.8 10^3/uL (1.5-3.5); LYMPHOCYTES % (AUTO) 30.3 %; MEAN CORPUSCULAR HEMOGLOBIN 29.5 pg (27.0-31.0); MEAN CORPUSCULAR HGB CONC 32.7 g/dL (32.0-36.0); MEAN CORPUSCULAR VOLUME 90.2 fL (81.0-99.0); MEAN PLATELET VOLUME 9.4 fL (7.9-10.8); MONOCYTES # (AUTO) 0.4 10^3/uL (0.0-1.0); MONOCYTES % (AUTO) 6.5 %; NEUTROPHILS # (AUTO) 3.5 10^3/uL (1.5-6.6); NEUTROPHILS % (AUTO) 59.8 %; PLT - PLATELET COUNT 224 10^3/uL (130-450); RED BLOOD COUNT 4.92 10^6/uL (4.20-5.40); RED CELL DISTRIBUTION WIDTH 12.6 % (12.0-15.0); WHITE BLOOD COUNT 5.8 x10^3/uL (4.8-10.8)
[2021-08-27 08:26] LABS: THYROID STIMULATING HORMONE 4.45 uIU/mL (0.34-5.60)
[2021-08-27 08:27] LABS: ALBUMIN/GLOBULIN RATIO 1.1 (1.0-2.2); ALKALINE PHOSPHATASE 75 IU/L (42-121); ALT ALANINE AMINOTRANSFERASE 19 IU/L (10-60); AST ASPARTATE AMINOTRANSFERASE 23 IU/L (10-42); BILIRUBIN,TOTAL 1.2 mg/dL (0.2-1.0); BUN - BLOOD UREA NITROGEN 17 mg/dL (6-20); CALCIUM 9.2 mg/dL (8.5-10.3); CARBON DIOXIDE - CO2 28 mmol/L (21-32); CHLORIDE 102 mmol/L (101-111); CHOL/HDL RATIO 3.3 (<4.4); CHOLESTEROL 216 mg/dL; CREATININE 0.6 mg/dL (0.4-1.0); GFR - MDRD 99 (>89); GLUCOSE 91 mg/dL (70-100); HDL CHOLESTEROL 66 mg/dL; LDL CHOLESTEROL,CALCULATED 122 mg/dL; LDL/HDL RATIO 1.8 (<4.4); POTASSIUM 4.2 mmol/L (3.5-5.0); SODIUM 140 mmol/L (135-145); TOTAL PROTEIN 7.6 g/dL (6.7-8.2); TRIGLYCERIDES 139 mg/dL; VLDL CHOLESTEROL 28 mg/dL
[2021-08-27 08:28] LABS: FREE T4 (FREE THYROXINE) 0.92 ng/dL (0.58-1.64)
== END 2021-08-27 07:22 | disposition home or self-care (01) ==
LOC: LAB 07:21
PROVIDERS: ATTEND Nurse Practitioner
DX: R53.83 Other fatigue (principal); E78.5 Hyperlipidemia, unspecified; E03.9 Hypothyroidism, unspecified
CPT/HCPCS: 36415; 80053; 80061; 83721; 84439; 84443; 85025

== ENCOUNTER 2022-03-30 09:04 | Outpatient (CLI) | payer MEDICARE, OTHER ==
[2022-03-30 09:25] LABS: HCT - HEMATOCRIT 48.4 % (37.0-47.0); HGB - HEMOGLOBIN 15.2 g/dL (12.0-16.0); MEAN CORPUSCULAR HEMOGLOBIN 28.7 pg (27.0-31.0); MEAN CORPUSCULAR HGB CONC 31.4 g/dL (32.0-36.0); MEAN CORPUSCULAR VOLUME 91.5 fL (81.0-99.0); MEAN PLATELET VOLUME 9.9 fL (7.9-10.8); RED BLOOD COUNT 5.29 10^6/uL (4.20-5.40); RED CELL DISTRIBUTION WIDTH 12.5 % (12.0-15.0); WHITE BLOOD COUNT 5.5 x10^3/uL (4.8-10.8)
[2022-03-30 09:59] LABS: CHOL/HDL RATIO 3.8 (<4.4); CHOLESTEROL 218 mg/dL; HDL CHOLESTEROL 57 mg/dL; LDL CHOLESTEROL,CALCULATED 123 mg/dL; LDL/HDL RATIO 2.2 (<4.4); TRIGLYCERIDES 189 mg/dL; URIC ACID 4.4 mg/dL (2.6-7.2); VLDL CHOLESTEROL 38 mg/dL
[2022-03-30 10:53] LABS: CRP - C-REACTIVE PROTEIN < 1.0 mg/dL (0-1.0)
[2022-03-30 11:48] LABS: RHEUMATOID FACTOR NEGATIVE (Negative)
[2022-03-31 18:07] LABS: ANTI-DNA (DS) AB QN 1 IU/mL (0-9)
[2022-04-01 20:07] LABS: CYCLIC CITRULLINATED PEP IGG/A 2 units (0-19)
== END 2022-03-30 09:05 | disposition home or self-care (01) ==
LOC: LAB 09:04
PROVIDERS: ATTEND Nurse Practitioner
DX: M19.042 Primary osteoarthritis, left hand (principal); M19.041 Primary osteoarthritis, right hand; E78.5 Hyperlipidemia, unspecified
CPT/HCPCS: 36415; 80061; 81599; 83721; 84550; 85027; 85651; 86140; 86200; 86225; 86430

== ENCOUNTER 2022-06-01 07:50 | Outpatient (CLI) | payer MEDICARE, OTHER ==
[2022-06-01 08:17] LABS: BASOPHILS % (AUTO) 0.6 %; EOSINOPHILS # (AUTO) 0.1 10^3/uL (0.0-0.7); EOSINOPHILS % (AUTO) 2.3 %; HCT - HEMATOCRIT 46.4 % (37.0-47.0); HGB - HEMOGLOBIN 14.7 g/dL (12.0-16.0); LYMPHOCYTES # (AUTO) 2.2 10^3/uL (1.5-3.5); LYMPHOCYTES % (AUTO) 41.9 %; MEAN CORPUSCULAR HEMOGLOBIN 28.7 pg (27.0-31.0); MEAN CORPUSCULAR HGB CONC 31.7 g/dL (32.0-36.0); MEAN CORPUSCULAR VOLUME 90.6 fL (81.0-99.0); MEAN PLATELET VOLUME 10.4 fL (7.9-10.8); MONOCYTES # (AUTO) 0.3 10^3/uL (0.0-1.0); MONOCYTES % (AUTO) 6.6 %; NEUTROPHILS # (AUTO) 2.5 10^3/uL (1.5-6.6); NEUTROPHILS % (AUTO) 48.4 %; PLT - PLATELET COUNT 185 10^3/uL (130-450); RED BLOOD COUNT 5.12 10^6/uL (4.20-5.40); RED CELL DISTRIBUTION WIDTH 12.2 % (12.0-15.0); WHITE BLOOD COUNT 5.1 x10^3/uL (4.8-10.8)
[2022-06-01 08:24] LABS: ALBUMIN 3.9 g/dL (3.2-5.5); ALBUMIN/GLOBULIN RATIO 1.3 (1.0-2.2); BILIRUBIN,TOTAL 0.9 mg/dL (0.2-1.0); CALCIUM 9.1 mg/dL (8.5-10.3); CREATININE 0.8 mg/dL (0.4-1.0)
== END 2022-06-01 07:51 | disposition home or self-care (01) ==
LOC: LAB 07:50
PROVIDERS: ATTEND Nurse Practitioner
DX: Z71.89 Other specified counseling (principal)
CPT/HCPCS: 36415; 80053; 85025

== ENCOUNTER 2022-06-01 12:41 | Outpatient (CLI) | payer MEDICARE, OTHER | END 2022-06-01 12:42 | disposition home or self-care (01) | LOC: RT 12:41 | PROVIDERS: ATTEND Nurse Practitioner | DX: Z71.89 Other specified counseling (principal) | CPT/HCPCS: 93005 ==

== ENCOUNTER 2022-10-28 11:13 | Outpatient (CLI) | payer MEDICARE, OTHER ==
--- NOTE | 2022-10-29 10:58 | Mammography Report ---
BILATERAL DIGITAL SCREENING MAMMOGRAM 3D/2D: 10/28/2022 CLINICAL: Routine screening. Comparison is made to exams dated: 10/08/2021 mammogram, 09/06/2019 mammogram, 08/10/2018 mammogram, 2017 mammogram, and 07/20/2016 mammogram - [facility]. There are scattered areas of fibroglandular density in both breasts (category b / 25%-50% glandular t issue). No significant masses, calcifications, or other findings are seen in either breast. There has been no significant interval change. IMPRESSION: NEGATIVE There is no mammographic evidence of malignancy. A 1 year screening mammogram is recommended. Based on the Tyrer Cuzick model (a risk assessment model) the patients lifetime risk is 11.9% and he r 10 year risk is 9.0%. According to the ACR, ACS, and NCCN guidelines, an annual breast MRI exam shey ng with mammogram is recommended if the patients lifetime risk is 20% or greater. This exam was interpreted at Station ID: [id number]. NOTE: For mammograms, a report in lay terms will be sent to the patient. Approximately 15% of breast malignancies will not be visualized mammographically. In the management of a palpable breast mass, a negative mammogram must not discourage biopsy of a clinically suspicious lesion. Electronically Signed By: John sam/amena:10/28/2022 14:54:58 letter sent: No_Letter ACR BI-RADS Category 1: Negative 3341F PARENCHYMAL PATTERN: (A) - The breast(s) demonstrate(s) scattered fibroglandular densities. BI-RADS CATEGORY: (1) - 1 Mammogram [id number] 1 year screening LATERALITY: (B)
== END 2022-10-28 11:14 | disposition home or self-care (01) ==
LOC: DI 11:13
DX: Z12.31 Encounter for screening mammogram for malignant neoplasm of breast (principal)

== ENCOUNTER 2023-01-27 17:10 | Outpatient (CLI) | payer MEDICARE, OTHER ==
[2023-01-27 17:36] LABS: BASOPHILS % (AUTO) 0.7 %; EOSINOPHILS # (AUTO) 0.1 10^3/uL (0.0-0.7); EOSINOPHILS % (AUTO) 1.4 %; HCT - HEMATOCRIT 46.8 % (37.0-47.0); HGB - HEMOGLOBIN 15.1 g/dL (12.0-16.0); LYMPHOCYTES % (AUTO) 35.5 %; MEAN CORPUSCULAR HEMOGLOBIN 29.3 pg (27.0-31.0); MEAN CORPUSCULAR HGB CONC 32.3 g/dL (32.0-36.0); MEAN CORPUSCULAR VOLUME 90.9 fL (81.0-99.0); MEAN PLATELET VOLUME 10.7 fL (7.9-10.8); MONOCYTES # (AUTO) 0.4 10^3/uL (0.0-1.0); MONOCYTES % (AUTO) 7.3 %; NEUTROPHILS # (AUTO) 3.1 10^3/uL (1.5-6.6); NEUTROPHILS % (AUTO) 54.7 %; PLT - PLATELET COUNT 180 10^3/uL (130-450); RED BLOOD COUNT 5.15 10^6/uL (4.20-5.40); RED CELL DISTRIBUTION WIDTH 12.4 % (12.0-15.0); WHITE BLOOD COUNT 5.6 x10^3/uL (4.8-10.8)
[2023-01-27 17:41] LABS: ALBUMIN 4.4 g/dL (3.2-5.5); ALBUMIN/GLOBULIN RATIO 1.4 (1.0-2.2); CALCIUM 9.7 mg/dL (8.5-10.3); CREATININE 0.8 mg/dL (0.6-1.3); POTASSIUM 4.1 mmol/L (3.5-4.5); TOTAL PROTEIN 7.5 g/dL (6.4-8.9)
[2023-01-27 17:58] LABS: THYROID STIMULATING HORMONE 4.53 uIU/mL (0.34-5.60)
== END 2023-01-27 17:11 | disposition home or self-care (01) ==
LOC: LAB 17:10
PROVIDERS: ATTEND Nurse Practitioner
DX: Z51.81 Encounter for therapeutic drug level monitoring (principal); E03.9 Hypothyroidism, unspecified; Z79.899 Other long term (current) drug therapy
CPT/HCPCS: 36415; 80053; 84439; 84443; 85025

== ENCOUNTER 2023-04-13 10:44 | Outpatient (CLI) | payer MEDICARE, OTHER ==
--- NOTE | 2023-04-13 13:22 | CT Report ---
PROCEDURE: Lower Extremity RT WO INDICATIONS: METATARSALGIA, RIGHT FOOT, S/P TMJ FUSION TECHNIQUE: Noncontrast 0.6 mm axial images right foot and ankle were obtained with coronal and sagittal reformat s. For radiation dose reduction, the following was used: automated exposure control, adjustment of mA and/or kV according to patient size. COMPARISON: Right foot MRI dated 02/04/2016 and bilateral foot radiograph dated 12/20/2015.. FINDINGS: Image quality: Excellent. Bones: There is prior surgical fusion at first TMT joint with surgical hardware in place. No gross h ardware loosening or failure is noted. Postsurgical changes also seen in inferior aspect of mid to po sterior calcaneus with surgical screw tract in place. Osteoarthritic changes are noted throughout rig ht foot. Old partially united fracture involving mid shaft of first proximal phalanx is seen with chr onic-appearing deformity. Old healed fracture involving second proximal phalangeal base is also seen. Near complete bony union at first TMT joint is noted. No acute fracture or dislocation. No CT eviden ce of metatarsal stress fractures. No suspicious bony lesions. Well-defined plantar calcaneal entheso phyte is seen. Soft tissues: There is no abnormal soft tissue calcifications. No significant joint effusion. No ful l-thickness tendon rupture. No soft tissue mass or drainable fluid collection. Achilles tendon and pl luciano fascia are within normal limits. Impression: 1. Old healed first and second proximal phalangeal fractures with chronic-appearing deformity. Prior fusion of first TMT joint with surgical hardware in place. No acute fracture or dislocation. No gross hardware loosening or failure. 2. Postsurgical changes also seen in calcaneus as above. Osteoarthritic changes are noted throughout right foot. Well-defined plantar calcaneal enthesophyte. No CT evidence of metatarsal stress fracture s. No suspicious bony lesions. 3. No gross right foot soft tissue abnormalities. No full-thickness tendon rupture. Reviewed by: Dwight Varela MD on 04/13/2023 1:20 PM PST Approved by: Dwight Varela MD on 04/13/2023 1:20 PM PST Station ID: [id number]
== END 2023-04-13 10:45 | disposition home or self-care (01) ==
LOC: DI 10:44
PROVIDERS: ATTEND Podiatrist
DX: M19.071 Primary osteoarthritis, right ankle and foot (principal); S92.401D Displaced unspecified fracture of right great toe, subsequent encounter for fracture with routine healing; S92.501D Displaced unspecified fracture of right lesser toe(s), subsequent encounter for fracture with routine healing; M77.31 Calcaneal spur, right foot

== ENCOUNTER 2023-10-12 08:00 | Outpatient (CLI) | payer MEDICARE, OTHER ==
[2023-10-12 17:51] LABS: BASOPHILS # (AUTO) 0.1 10^3/uL (0.0-0.1); BASOPHILS % (AUTO) 0.7 %; EOSINOPHILS # (AUTO) 0.1 10^3/uL (0.0-0.7); EOSINOPHILS % (AUTO) 0.7 %; HCT - HEMATOCRIT 47.3 % (37.0-47.0); HGB - HEMOGLOBIN 15.2 g/dL (12.0-16.0); LYMPHOCYTES # (AUTO) 1.7 10^3/uL (1.5-3.5); LYMPHOCYTES % (AUTO) 25.6 %; MEAN CORPUSCULAR HEMOGLOBIN 29.6 pg (27.0-31.0); MEAN CORPUSCULAR HGB CONC 32.1 g/dL (32.0-36.0); MEAN CORPUSCULAR VOLUME 92.2 fL (81.0-99.0); MEAN PLATELET VOLUME 11.2 fL (7.9-10.8); MONOCYTES # (AUTO) 0.4 10^3/uL (0.0-1.0); MONOCYTES % (AUTO) 5.2 %; NEUTROPHILS # (AUTO) 4.5 10^3/uL (1.5-6.6); NEUTROPHILS % (AUTO) 67.7 %; PLT - PLATELET COUNT 197 10^3/uL (130-450); RED BLOOD COUNT 5.13 10^6/uL (4.20-5.40); RED CELL DISTRIBUTION WIDTH 12.1 % (12.0-15.0); WHITE BLOOD COUNT 6.7 x10^3/uL (4.8-10.8)
[2023-10-12 18:07] LABS: ALBUMIN 4.3 g/dL (3.2-5.5); ALBUMIN/GLOBULIN RATIO 1.5 (1.0-2.2); BILIRUBIN,TOTAL 0.9 mg/dL (0.2-1.0); CALCIUM 10.4 mg/dL (8.5-10.3); CREATININE 0.9 mg/dL (0.6-1.3); POTASSIUM 4.4 mmol/L (3.5-4.5); TOTAL PROTEIN 7.1 g/dL (6.4-8.9)
[2023-10-12 18:20] LABS: THYROID STIMULATING HORMONE 4.06 uIU/mL (0.34-5.60)
== END 2023-10-12 23:59 | disposition home or self-care (01) ==
LOC: LAB.N 08:00
PROVIDERS: ATTEND Family Medicine
DX: R11.0 Nausea (principal); H81.10 Benign paroxysmal vertigo, unspecified ear; R10.9 Unspecified abdominal pain
CPT/HCPCS: 36415; 80053; 83690; 84443; 85025

== ENCOUNTER 2023-10-25 10:28 | Outpatient (CLI) | payer MEDICARE, OTHER ==
[2023-10-25] MEDS ORDERED: iohexoL-300 100 ML VIAL ONE (11:00)
[2023-10-25] MEDS ORDERED: DIATRIZOATE MEGLU/DIATRIZO SOD 30 ML BOTTLE PO ONE (11:00)
[2023-10-25] MEDS: DIATRIZOATE MEGLU/DIATRIZO SOD 30 ML BOTTLE PO ONE (14:25)
[2023-10-25] MEDS: iohexoL-300 100 ML VIAL IVP ONE (14:25)
--- NOTE | 2023-10-25 21:30 | CT Report ---
PROCEDURE: Abdomen/Pelvis W INDICATIONS: ABD PAIN CONTRAST: Omni 300 100ml TECHNIQUE: After the administration of intravenous contrast, a CT scan of the abdomen and pelvis was performed. Images were recorded and evaluated at appropriate window settings. Reformats: coronal and sagittal. F or radiation dose reduction, the following was used: automated exposure control, adjustment of mA and /or kV according to patient size. COMPARISON: CT abdomen pelvis 02/13/2020. FINDINGS: Image quality: Diagnostic. Lower chest: Unremarkable. Liver: No solid mass. Gallbladder: Biliary tree: No intrahepatic or extrahepatic dilation, accounting for age. Spleen: No splenomegaly. Pancreas: No pancreatic ductal dilation. Adrenals: No adrenal nodule. Kidneys and ureters: No hydronephrosis. No renal cystic lesion which requires follow up. No solid mas s. Stomach, bowel and peritoneum: No gastric or small bowel dilation. No abnormal wall thickening. No pa thologic free fluid. Prominent colonic stool without obstruction. Colonic diverticular present withou t thickening. Lymph nodes: No central or retroperitoneal adenopathy. Vessels: No infrarenal aortic aneurysm. Patent portal vein. PELVIS Reproductive organs: Unremarkable. Bladder: No abnormal wall thickening, accounting for underdistention. Pelvic lymph nodes: No pelvic adenopathy by size criteria. Bones: No aggressive osseous abnormality. Prominent leftward scoliotic curvature within the lumbar sp ine. Bilateral L5 pars defect. Other: No significant ventral or inguinal hernia. IMPRESSION: Significant colonic stool without obstruction. Diverticulosis. Reviewed by: Maryan Osullivan MD on 10/25/2023 9:28 PM PDT Approved by: Maryan Osullivan MD on 10/25/2023 9:28 PM PDT Station ID: [id number]
== END 2023-10-25 10:29 | disposition home or self-care (01) ==
LOC: DI 10:28
PROVIDERS: ATTEND Family Medicine
DX: R10.9 Unspecified abdominal pain (principal); K57.30 Diverticulosis of large intestine without perforation or abscess without bleeding
CPT/HCPCS: 74177; Q9963; Q9967

== ENCOUNTER 2023-12-16 13:21 | Outpatient (CLI) | payer MEDICARE, OTHER ==
--- NOTE | 2023-12-17 10:45 | Mammography Report ---
BILATERAL DIGITAL SCREENING MAMMOGRAM 3D/2D: 12/16/2023 CLINICAL: Routine screening. Comparison is made to exams dated: 10/28/2022 mammogram, 10/08/2021 mammogram, 09/06/2019 mammogram, 2018 mammogram, 07/26/2017 mammogram, and 07/20/2016 mammogram - [facility]. There are scattered areas of fibroglandular density (category b / 25%-50% glandular tissue). No significant masses, calcifications, or other findings are seen in either breast. There has been no significant interval change. IMPRESSION: NEGATIVE There is no mammographic evidence of malignancy. A 1 year screening mammogram is recommended. Based on the Tyrer Cuzick model (a risk assessment model) the patient's lifetime risk is 10.5% and he r 10 year risk is 9.5%. According to the ACR, ACS, and NCCN guidelines, an annual breast MRI exam shey ng with mammogram is recommended if the patient's lifetime risk is 20% or greater. This exam was interpreted at Station ID: [id number]. NOTE: For mammograms, a report in lay terms will be sent to the patient. Approximately 15% of breast malignancies will not be visualized mammographically. In the management of a palpable breast mass, a negative mammogram must not discourage biopsy of a clinically suspicious lesion. Electronically Signed By: Yuniel brady/amena:12/16/2023 17:43:02 ACR BI-RADS Category 1: Negative 3341F PARENCHYMAL PATTERN: (A) - The breast(s) demonstrate(s) scattered fibroglandular densities. BI-RADS CATEGORY: (1) - 1 RECOMMENDATION: (ANNUAL) - Recommend routine annual screening mammography. [id number] 1 year screening LATERALITY: (B)
== END 2023-12-16 13:22 | disposition home or self-care (01) ==
LOC: DI 13:21
DX: Z12.31 Encounter for screening mammogram for malignant neoplasm of breast (principal)